=== PATIENT | male | born 1995 | race Caucasian/White ===

== ENCOUNTER 2025-03-27 21:47 | Emergency (ER) | payer OTHER | END 2025-03-28 00:10 | disposition home or self-care (01) | LOC: EDBD 21:47 → JP.ED 21:47 | DX: S92.221A Displaced fracture of lateral cuneiform of right foot, initial encounter for closed fracture (principal); S92.331A Displaced fracture of third metatarsal bone, right foot, initial encounter for closed fracture; Z88.0 Allergy status to penicillin; X50.1XXA Overexertion from prolonged static or awkward postures, initial encounter | CPT/HCPCS: 73610-26-RT; 73610-RT; 73630-26-RT; 73630-RT; 99283; 99284 ==